=== PATIENT | female | born 1980 | race Two or more races ===

== ENCOUNTER 2019-07-28 14:21 | Emergency (ER) | payer MEDICAID ==
[~2019-07-28] VITALS: Ht 152.4 cm; Wt 89.9 kg
--- NOTE | 2019-07-28 15:39 | NUR ---
PT AMBULTED TO RESTROOM TO PROVIDE RN WITH A URINE SAMPLE. PT HAD A STEADY GAIT.
--- NOTE | 2019-07-28 15:44 | NUR ---
PT PRESENTED TO THE ED D/T PAINFUL URINATION SINCE THIS AM. PT STATES ALSO FEVERS A CHILLS.
[2019-07-28 16:02] LABS: HCG UR SG 1.018 (1.003-1.030); MICROSCOPIC AUTO
--- NOTE | 2019-07-28 16:11 | NUR ---
PT PROVIDED WITH WARM BLANKETS PER REQUEST.
[2019-07-28 16:14] LABS: CULTURE INDICATED? YES
--- NOTE | 2019-07-28 16:55 | NUR ---
PT DISCHARGED HOME IN STABLE CONDITION. DC INSTRUCTIONS WERE DISCUSSED WITH PT. PT VERBALIZED UNDERSTANDING. NO FURTHER QUESTIONS OR CONCERNS WERE EXPRESSED AT THAT TIME. PT AMBULATED WITH FAMILY AND RN TO DC DESK. STEADY GAIT.
[2019-07-28 16:56] VITALS: BP 124/77
== END 2019-07-28 16:58 | disposition home or self-care (01) ==
LOC: ED 16:45
DX: N30.00 Acute cystitis without hematuria (principal)
CPT/HCPCS: 81001; 81025; 87086; 99283